=== PATIENT | female | born 1970 | race Two or more races ===

== ENCOUNTER 2022-01-10 08:43 | Emergency (ER) | payer MEDICAID, OTHER ==
[~2022-01-10] VITALS: Ht 154.9 cm; Wt 49.9 kg
--- NOTE | 2022-01-10 10:03 | NUR ---
Patient discharged to home in stable condition. Written and verbal after care instructions given. Patient verbalizes understanding of instruction.
[2022-01-10 10:04] VITALS: BP 90/46
== END 2022-01-10 10:04 | disposition home or self-care (01) ==
LOC: ER 08:44
DX: M79.604 Pain in right leg (principal); M25.561 Pain in right knee; E05.90 Thyrotoxicosis, unspecified without thyrotoxic crisis or storm
CPT/HCPCS: 93971-TC

== ENCOUNTER 2023-03-19 16:09 | Emergency (ER) | payer OTHER ==
[~2023-03-19] VITALS: Ht 157.5 cm; Wt 59.0 kg
--- NOTE | 2023-03-19 16:25 | NUR ---
KATYA LÓPEZ C/O NASAL CONGESTION X 10 DAYS, WORST SINCE WEDNESDAY, PAIN TAKING DEEP BREATHS PAIN R/T R SIDE CHEST/FLANK AND BACK. TAKING IBUPROFEN NO RELIEF.
--- NOTE | 2023-03-19 17:00 | NUR ---
Patient discharged to home in stable condition. Written and verbal after care instructions given. Patient verbalizes understanding of instruction.
[2023-03-19] MEDS ORDERED: CYCL10TA9 PO (17:01)
[2023-03-19 17:23] VITALS: BP 110/60
== END 2023-03-19 17:00 | disposition home or self-care (01) ==
LOC: ER 16:17
DX: J00 Acute nasopharyngitis [common cold] (principal); M62.830 Muscle spasm of back; R09.82 Postnasal drip; J45.909 Unspecified asthma, uncomplicated; E05.90 Thyrotoxicosis, unspecified without thyrotoxic crisis or storm

== ENCOUNTER → 2023-06-08 | Emergency (ER) | payer OTHER ==
[~2023-06-08] VITALS: Ht 157.5 cm; Wt 56.2 kg
[~2023-06-08] MED LIST: CYCL10TA9 PO; LIDO30AD10 TP; LIDOCAINE 5% (PATCH) 1 EA PATCH TP ONE; LIDOCAINE 5% (PATCH) 1 EA PATCH TP SCH
[2023-06-08 10:45] VITALS: BP 93/49; TEMP 98.2; O2SAT 100
--- NOTE | 2023-06-08 10:52 | NUR ---
AAOx4, came to ER c/o right clavicle pain. Afebrile. No s/s or c/o distress. Will continuously monitor the patient. Awaiting md for eval.
--- NOTE | 2023-06-08 11:34 | NUR ---
SEEN BY AWAITING XRAY
--- NOTE | 2023-06-08 12:34 | NUR ---
DISCHARGE INSTRUCTIONS GIVEN ORDERED. ALL QUESTIONS AND CONCERNS ADDRESSED. PATIENT VERBALIZED UNDERSTANDING. PATIENT ESCORTED OUT WITH ALL PERSONAL BELONGINGS, ACCOMPANIED BY STAFF AND FAMILY MEMBER. NO DISTRESS NOTED AT TIME OF DEPARTURE.
== END | disposition home or self-care (01) ==
LOC: ER 10:50
DX: M25.511 Pain in right shoulder (principal); E03.9 Hypothyroidism, unspecified; Z79.899 Other long term (current) drug therapy
CPT/HCPCS: 73000-TC